=== PATIENT | male | born 1960 | race Caucasian/White ===

== ENCOUNTER → 2016-11-18 | Outpatient (CLI) | payer OTHER ==
[~2016-11-18] MED LIST: CIPRO PO; MOTRIN600 MG PO; TYLENOL #3 PO
--- NOTE | ~2016-11-18 | US136 ---
[facility] A Service of [facility] RADIOLOGY TEXT RESULTS PATIENT: SHERRY GUZMAN LOCATION: [facility] : 60 UNIT #: [id number] AGE: [address]: KEDAR HIGGINS MD SEX: M ORDER DR: [id number] [facility] [address] [place], [place] [address] [id number] O MR#: [id number] Acc #: [id number] NAME: SHERRY GUZMAN. : 1960 SEX: M STUDY DATE/TIME: 11/18/2016 14:32 UNIT: [facility] ROOM: STUDY DESCRIPTION: US U/L Ext [employer] Bilat Attending Physician: Kedar Higgins M.D. Referring Physician: Kedar Higgins M.D. Ordering Physician: Kedar Higgins M.D. Primary Care Physician: Kedar Higgins M.D. MEDICAL IMAGING REPORT This report is preliminary unless electronic signature is present EXAM mshmr-oy-vdwdadqo indices. DATE OF EXAM 11/18/2016 HISTORY Right great toe ulcer. FINDINGS The right brachial pressure is 143 and the left brachial pressure is 136. The right dorsalis pedis pressure is 179, posterior tibial 178, and toe 162, for an qwbup-ck-kznvgqqg index of 1.25. Toe brachial index on the right is 1.13. The left posterior tibial pressure is 176, dorsalis pedis 176, and toe 170 for an smlaf-lu-igkutgmv index of 1.23. Toe brachial index on the left is 1.19. Doppler waveform analysis indicates a triphasic signal in the posterior tibial and dorsalis pedis arteries bilaterally. Pulse volume recordings tracings demonstrate a good amplitude signal at the digital level on both sides. IMPRESSION Normal perfusion to both feet. Swltx-jz-clnacpkq index is 1.25 on the right and 1.23 on the left. Toe pressures indicate adequate perfusion to allow healing of both feet. [facility] A Service [facility] RADIOLOGY TEXT RESULTS PATIENT: SHERRY GUZMAN LOCATION: [facility] : 60 UNIT #: [id number] AGE: [address]: KEDAR HIGGINS MD SEX: M ORDER DR: Dictated by... Domo Castro M.D. THIS IS AN ELECTRONICALLY VERIFIED REPORT Domo Castro M.D. at 11/19/2016 7:33 AM NICK/alfonzo TD: 11/18/2016 17:36 JOB #: [id number] MEDICAL IMAGING REPORT Page 1 of 1 COPY
== END | disposition home or self-care (01) ==
LOC: CNIV 14:24
DX: L97.513 Non-pressure chronic ulcer of other part of right foot with necrosis of muscle (principal)
CPT/HCPCS: 93922

== ENCOUNTER → 2016-11-27 | Outpatient (CLI) | payer OTHER ==
--- NOTE | ~2016-11-27 | CR124 ---
[facility] A Service of [facility] RADIOLOGY TEXT RESULTS PATIENT: SHERRY GUZMAN LOCATION: [facility] : 60 UNIT #: [id number] AGE: [address]: KEDAR HIGGINS MD SEX: M ORDER DR: [id number] [facility] [address] [place], [place] [address] [id number] O MR#: [id number] Acc #: [id number] NAME: SHERRY GUZMAN. : 1960 SEX: M STUDY DATE/TIME: 11/27/2016 14:25 UNIT: [facility] ROOM: STUDY DESCRIPTION: CR Foot 2 Views Rt Attending Physician: Kedar Higgins M.D. Referring Physician: Kedar Higgins M.D. Ordering Physician: Kedar Higgins M.D. Primary Care Physician: Kedar Higgins M.D. MEDICAL IMAGING REPORT This report is preliminary unless electronic signature is present EXAM Right foot, 11/27/16 HISTORY Right toe ulcer for a month, ulcer on the great toe FINDINGS Three views of the right foot were obtained. There appears to be a bandage on the great toe and there may be a distal soft tissue ulcer. The bones of the foot are normal. IMPRESSION Bones are normal. There appears to be a deep soft tissue defect on the tip of the great toe. No foreign bodies are visible. Dictated by... Gennaro Calderón M.D. THIS IS AN ELECTRONICALLY VERIFIED REPORT Gennaro Calderón M.D. at 11/28/2016 10:41 PM Ginny TD: 11/27/2016 20:40 JOB #: [id number] MEDICAL IMAGING REPORT Page 1 of 1 COPY
== END | disposition home or self-care (01) ==
LOC: CRAD 14:08
DX: L97.513 Non-pressure chronic ulcer of other part of right foot with necrosis of muscle (principal); M79.89 Other specified soft tissue disorders
CPT/HCPCS: 73620

== ENCOUNTER → 2017-03-29 | Outpatient (CLI) | payer OTHER ==
--- NOTE | ~2017-03-29 | CR229 ---
[facility] A Service of [facility] RADIOLOGY TEXT RESULTS PATIENT: SHERRY GUZMAN SR LOCATION: [facility] : 60 UNIT #: [id number] AGE: [address]: RAKEL GONZALES APRN SEX: M ORDER DR: [id number] [facility] [address] [place], [place] [address] [id number] O MR#: [id number] Acc #: [id number] NAME: SHERRY GUZMAN SR : 1960 SEX: M STUDY DATE/TIME: 03/29/2017 15:36 UNIT: [facility] ROOM: STUDY DESCRIPTION: CR Shoulder Min 2 View Lt Attending Physician: Rakel Gonzales Aprn Referring Physician: Rakel Gonzales Aprn Primary Care Physician: Keith Morejon M.D. MEDICAL IMAGING REPORT This report is preliminary unless electronic signature is present EXAM Left shoulder, 03/29/2017. HISTORY 57-year-old male with left shoulder pain for several months. COMPARISON None. FINDINGS Three views of the left shoulder demonstrate no acute fracture or dislocation. Acromioclavicular joint is within expected limits. Soft tissues are unremarkable. IMPRESSION Unremarkable left shoulder. Dictated by... Carlitos Campo M.D. THIS IS AN ELECTRONICALLY VERIFIED REPORT Carlitos Campo M.D. at 03/30/2017 2:20 PM KRYSTAL/richard TD: 03/30/2017 09:59 JOB #: [id number] MEDICAL IMAGING REPORT Page 1 of 1 COPY
== END | disposition home or self-care (01) ==
LOC: CRAD 15:03
DX: M25.512 Pain in left shoulder (principal)
CPT/HCPCS: 73030

== ENCOUNTER → 2017-03-29 | Outpatient (CLI) | payer OTHER ==
--- NOTE | ~2017-03-29 | CR91 ---
[facility] A Service of [facility] RADIOLOGY TEXT RESULTS PATIENT: SHERRY GUZMAN SR LOCATION: [facility] : 60 UNIT #: [id number] AGE: [address]: KEDAR HIGGINS MD SEX: M ORDER DR: [id number] [facility] [address] [place], [place] [address] [id number] O MR#: [id number] Acc #: [id number] NAME: SHERRY GUZMAN SR : 1960 SEX: M STUDY DATE/TIME: 03/29/2017 15:35 UNIT: [facility] ROOM: STUDY DESCRIPTION: CR Elbow 2 View Rt Attending Physician: Kedar Higgins M.D. Referring Physician: Kedar Higgins M.D. Ordering Physician: Kedar Higgins M.D. Primary Care Physician: Kedar Higgins M.D. MEDICAL IMAGING REPORT This report is preliminary unless electronic signature is present EXAM Right elbow 3 views, 03/29/2017 HISTORY Right elbow pain for 2 weeks. No known injury. FINDINGS AP and lateral examination of the elbow shows satisfactory articulation of the humerus with the proximal radius and ulna. There is no identifiable fracture, dislocation, joint effusion, or radiopaque foreign body in the soft tissues. IMPRESSION Normal elbow. Dictated by... Adebayo Cason M.D. THIS IS AN ELECTRONICALLY VERIFIED REPORT Adebayo Cason M.D. at 03/30/2017 7:17 AM SUSY/kyler TD: 03/30/2017 03:00 JOB #: [id number] MEDICAL IMAGING REPORT Page 1 of 1 COPY
== END | disposition home or self-care (01) ==
LOC: CRAD 15:06
DX: M25.521 Pain in right elbow (principal)
CPT/HCPCS: 73070